=== PATIENT | male | born 1935 | race American Indian/Alaskan Native ===

== ENCOUNTER 2017-10-24 23:54 | Emergency (ER) | payer MEDICARE ==
[2017-10-25 00:29] LABS: Hematocrit 43.7 % (35.5-45.6); Hemoglobin 14.4 gm/dl (11.8-15.2); Mean Corpuscular HGB Conc 33 % (32-34); Mean Corpuscular Hemoglobin 32 pg (28-32); Mean Corpuscular Volume 98 fl (84-94); Platelet Count 147 K/mm3 (140-440); Red Blood Count 4.44 M/mm3 (3.65-5.03); Red Cell Distribution Width 12.1 % (13.2-15.2)
[2017-10-25 00:46] LABS: BUN/Creatinine Ratio 13; Blood Urea Nitrogen 12 mg/dL (9-20); Calcium 9.2 mg/dL (8.4-10.2); Hemolysis Index 8
--- NOTE | 2017-10-25 03:23 | XRay Report ---
FINAL REPORT EXAM: XR CHEST ROUTINE 2V HISTORY: SOB TECHNIQUE: PA and lateral views of the chest were submitted. There are no previous studies available for comparison. FINDINGS: Heart size and mediastinum appear normal. There are no acute infiltrates or effusions. The bones and soft tissues do not show any acute changes. IMPRESSION: No active chest disease.
[2017-10-25 05:40] LABS: Band Neutrophils # (Manual) 0.7 K/mm3; Basophils % (Manual) 0 % (0.0-1.8); Eosinophils % (Manual) 0 % (0.0-4.3); Total Cells Counted 100
[2017-10-25 05:41] LABS: RBC Morphology Normal
[2017-10-25] MEDS ORDERED: ATROVENT IH ONE (06:46)
[2017-10-25] MEDS ORDERED: DELTASONE PO ONE (06:46)
[2017-10-25] MEDS ORDERED: TESSALON PERLES PO ONE (06:46)
[2017-10-25] MEDS ORDERED: PROVENTIL IH ONE (06:46)
[2017-10-25] MEDS ORDERED: NORCO 5/325 PO ONE (06:47)
--- NOTE | 2017-10-25 07:07 | Emergency Department Report ---
- General Chief Complaint: Upper Respiratory Infection Stated Complaint: COLD SX / FEVER Time Seen by Provider: 10/25/17 06:36 Source: patient Mode of arrival: Ambulatory Limitations: No Limitations - History of Present Illness Initial Comments: 83-year-old male with a past medical history prostate cancer, prediabetes, hypertension presents to Hospital with complaints of continued cough and URI symptoms 2 weeks. Patient is cooperative young sputum he complains of moderate to severe pain across chest and posterior thorax associated with coughing. Pain worse with cough, palpation, and movement. Patient has taken 2 rounds of Z-Dio without improvement. Positive intermittent wheezing ordered but patient is not currently on any bronchodilators. He denies steroid prescriptions. No fever reported. Denies a history of COPD or asthma and denies smoking. - Related Data Previous Rx's Medication Instructions Recorded Last Taken Type ALBUTEROL Inhaler [ProAir HFA 2 puff IH QID PRN #1 inhalation 10/25/17 Unknown Rx Inhaler] Benzonatate [Tessalon Perles] 100 mg PO Q8HR #30 capsule 10/25/17 Unknown Rx HYDROcodone/APAP 5-325 [[place] 1 each PO Q6HR PRN #15 tablet 10/25/17 Unknown Rx 5/325] Ibuprofen [Motrin] 800 mg PO Q8HR PRN #30 tablet 10/25/17 Unknown Rx Inhaler, Assist Devices [Space 1 each MC PRN #1 spacer 10/25/17 Unknown Rx Chamber Plus] Levofloxacin [Levaquin] 750 mg PO QDAY #7 tablet 10/25/17 Unknown Rx Prednisone [predniSONE 10 mg 10 mg PO .TAPER #1 tab.ds.pk 10/25/17 Unknown Rx (6-Day Pack, 21 Tabs)] Allergies Allergy/AdvReac Type Severity Reaction Status Date / Time Penicillins Allergy Swelling Unverified 01/12/14 10:39 ED Review of Systems ROS: Stated complaint: COLD SX / FEVER Other details as noted in HPI Comment: All other systems reviewed and negative Other: Constitutional: No fevers chills Eyes: No eye pain visual changes ENT: No ear pain or throat pain Neck: Denies pain Respiratory: As per HPI Cardiovascular: Denies palpitations, syncope GI: Denies abdominal pain, nausea, vomiting, diarrhea : Denies dysuria Musculoskeletal: Denies back pain Skin: Denies rash, lesions, erythema Neurologic: Denies headache, numbness, weakness Psychiatric: Denies suicidal ideation, hallucinations ED Past Medical Hx - Past Medical History Previous Medical History?: Yes Hx Hypertension: Yes Hx Diabetes: Yes (prediabetic) Hx of Cancer: Yes (prostate) - Surgical History Past Surgical History?: Yes Additional Surgical History: prostate removed - Social History Smoking Status: Never Smoker - Medications Home Medications: Home Medications Medication Instructions Recorded Confirmed Last Taken Type ALBUTEROL Inhaler [ProAir HFA 2 puff IH QID PRN #1 inhalation 10/25/17 Unknown Rx Inhaler] Benzonatate [Tessalon Perles] 100 mg PO Q8HR #30 capsule 10/25/17 Unknown Rx HYDROcodone/APAP 5-325 [[place] 1 each PO Q6HR PRN #15 tablet 10/25/17 Unknown Rx 5/325] Ibuprofen [Motrin] 800 mg PO Q8HR PRN #30 tablet 10/25/17 Unknown Rx Inhaler, Assist Devices [Space 1 each MC PRN #1 spacer 10/25/17 Unknown Rx Chamber Plus] Levofloxacin [Levaquin] 750 mg PO QDAY #7 tablet 10/25/17 Unknown Rx Prednisone [predniSONE 10 mg 10 mg PO .TAPER #1 tab.ds.pk 10/25/17 Unknown Rx (6-Day Pack, 21 Tabs)] ED Physical Exam - General Limitations: No Limitations - Other Other exam information: General: No limitations, patient is alert in no acute distress Head exam: Atraumatic, normocephalic Eyes exam: Normal appearance ENT: Moist mucous membrane Neck exam: Normal inspection, full range of motion, no meningismus nontender Respiratory exam: No accessory muscle use or tachypnea. Bilateral expiratory wheezing noted. Reproducible chest wall tenderness Cardiovascular: Normal rate and rhythm Abdomen: Soft, nondistended, and nontender, with normal bowel sounds, no rebound, or guarding Extremity: Full range of motion normal inspection no deformity, no calf tenderness or edema Back: Normal Inspection, full range of motion, no tenderness Neurologic: Alert, oriented x3, cranial nerves intact, no motor or sensory deficit Psychiatric: normal affect, normal mood Skin: Warm, dry, intact ED Course Vital Signs 10/25/17 10/25/17 10/25/17 00:03 00:07 01:30 Temperature 99 F 99.0 F Pulse Rate 79 79 Pulse Rate [ Bilateral] Respiratory 16 18 Rate Respiratory Rate [Bilateral ] Blood Pressure 147/66 Blood Pressure 147/66 [Right] O2 Sat by Pulse 95 95 96 Oximetry 10/25/17 10/25/17 10/25/17 01:39 01:45 02:00 Temperature Pulse Rate 66 68 Pulse Rate [ Bilateral] Respiratory 18 22 22 Rate Respiratory Rate [Bilateral ] Blood Pressure 154/76 154/72 Blood Pressure [Right] O2 Sat by Pulse 96 95 96 Oximetry 10/25/17 10/25/17 10/25/17 02:15 03:37 03:45 Temperature Pulse Rate 67 70 Pulse Rate [ Bilateral] Respiratory 20 22 Rate Respiratory Rate [Bilateral ] Blood Pressure 154/72 154/72 154/72 Blood Pressure [Right] O2 Sat by Pulse 96 94 94 Oximetry 10/25/17 10/25/17 10/25/17 04:00 04:15 04:30 Temperature Pulse Rate 69 69 69 Pulse Rate [ Bilateral] Respiratory 22 16 20 Rate Respiratory Rate [Bilateral ] Blood Pressure 152/70 152/70 159/73 Blood Pressure [Right] O2 Sat by Pulse 94 95 96 Oximetry 10/25/17 10/25/17 10/25/17 04:45 05:00 05:15 Temperature Pulse Rate 70 70 71 Pulse Rate [ Bilateral] Respiratory 25 H 23 23 Rate Respiratory Rate [Bilateral ] Blood Pressure 159/73 164/74 164/74 Blood Pressure [Right] O2 Sat by Pulse 95 95 95 Oximetry 10/25/17 10/25/17 10/25/17 05:30 05:45 06:00 Temperature Pulse Rate 71 71 Pulse Rate [ Bilateral] Respiratory 20 20 24 Rate Respiratory Rate [Bilateral ] Blood Pressure 155/74 155/74 152/80 Blood Pressure [Right] O2 Sat by Pulse 95 95 96 Oximetry 10/25/17 10/25/17 10/25/17 06:15 06:30 06:45 Temperature Pulse Rate 152 H 71 70 Pulse Rate [ Bilateral] Respiratory 17 17 18 Rate Respiratory Rate [Bilateral ] Blood Pressure 152/80 143/83 143/83 Blood Pressure [Right] O2 Sat by Pulse 95 94 97 Oximetry 10/25/17 10/25/17 10/25/17 07:00 07:53 07:54 Temperature Pulse Rate Pulse Rate [ 79 74 Bilateral] Respiratory 19 Rate Respiratory 20 18 Rate [Bilateral ] Blood Pressure 170/77 Blood Pressure [Right] O2 Sat by Pulse 96 Oximetry - Reevaluation(s) Reevaluation #1: 10/25/17 09:10 Patient feeling better with ED treatment and breath sounds clear - Consultations Consultation #1: 10/25/17 07:25 Case discussed with the awning finisher on-call Dr Brown. Suggest prednisone and to try Levaquin in outpatient follow ED Medical Decision Making - Lab Data Result diagrams: 10/25/17 00:17 10/25/17 00:17 Lab Results 10/25/17 10/25/17 Range/Units 00:17 00:17 WBC 6.7 (4.5-11.0) K/mm3 RBC 4.44 (3.65-5.03) M/mm3 Hgb 14.4 (11.8-15.2) gm/dl Hct 43.7 (35.5-45.6) % MCV 98 H (84-94) fl MCH 32 (28-32) pg MCHC 33 (32-34) % RDW 12.1 L (13.2-15.2) % Plt Count 147 (140-440) K/mm3 Hawkins % (Auto) Director Export Add Manual Diff Complete Total Counted 100 Seg Neuts % (Manual) 62.0 (40.0-70.0) % Band Neutrophils % 10.0 % Lymphocytes % (Manual) 10.0 L (13.4-35.0) % Reactive Lymphs % (Man) 0 % Monocytes % (Manual) 18.0 H (0.0-7.3) % Eosinophils % (Manual) 0 (0.0-4.3) % Basophils % (Manual) 0 (0.0-1.8) % Metamyelocytes % 0 % Myelocytes % 0 % Promyelocytes % 0 % Blast Cells % 0 % Nucleated RBC % Not Reportable Seg Neutrophils # Man 4.2 (1.8-7.7) K/mm3 Band Neutrophils # 0.7 K/mm3 Lymphocytes # (Manual) 0.7 L (1.2-5.4) K/mm3 Abs React Lymphs (Man) 0.0 K/mm3 Monocytes # (Manual) 1.2 H (0.0-0.8) K/mm3 Eosinophils # (Manual) 0.0 (0.0-0.4) K/mm3 Basophils # (Manual) 0.0 (0.0-0.1) K/mm3 Metamyelocytes # 0.0 K/mm3 Myelocytes # 0.0 K/mm3 Promyelocytes # 0.0 K/mm3 Blast Cells # 0.0 K/mm3 WBC Morphology Not Reportable Hypersegmented Neuts Not Reportable Hyposegmented Neuts Not Reportable Hypogranular Neuts Not Reportable Smudge Cells Not Reportable Toxic Granulation Not Reportable Toxic Vacuolation Not Reportable Dohle Bodies Not Reportable Pelger-Huet Anomaly Not Reportable Gricelda Rods Not Reportable Platelet Estimate Appears normal Clumped Platelets Not Reportable Plt Clumps, EDTA Not Reportable Large Platelets Not Reportable Giant Platelets Not Reportable Platelet Satelliting Not Reportable Plt Morphology Comment Not Reportable RBC Morphology Normal Dimorphic RBCs Not Reportable Polychromasia Not Reportable Hypochromasia Not Reportable Poikilocytosis Not Reportable Anisocytosis Not Reportable Microcytosis Not Reportable Macrocytosis Not Reportable Spherocytes Not Reportable Pappenheimer Bodies Not Reportable Sickle Cells Not Reportable Target Cells Not Reportable Tear Drop Cells Not Reportable Ovalocytes Not Reportable Helmet Cells Not Reportable Malone-Johnson Bodies Not Reportable Moody Rings Not Reportable [place] Cells Not Reportable Bite Cells Not Reportable Crenated Cell Not Reportable Elliptocytes Not Reportable Acanthocytes (Spur) Not Reportable Rouleaux Not Reportable Hemoglobin C Crystals Not Reportable Schistocytes Not Reportable Malaria parasites Not Reportable Cuong Bodies Not Reportable Hem Pathologist Commnt No Sodium 141 (137-145) mmol/L Potassium 4.8 (3.6-5.0) mmol/L Chloride 101.1 (98-107) mmol/L Carbon Dioxide 28 (22-30) mmol/L Anion Gap 17 mmol/L BUN 12 (9-20) mg/dL Creatinine 0.9 (0.8-1.5) mg/dL Estimated GFR > 60 ml/min BUN/Creatinine Ratio 13 % Glucose 166 H (75-100) mg/dL Calcium 9.2 (8.4-10.2) mg/dL - EKG Data -: EKG Interpreted by [facility] EKG shows normal: sinus rhythm, ST-T waves (lvh, stemi) Rate: normal (72) - Radiology Data Radiology results: report reviewed (chest x-ray: No acute findings. read By radiologist) - Medical Decision Making Patient being treated for bronchitis. He will be prescribed Levaquin since symptoms continue. Patient encouraged to take steroids although he states he will likely take him because of fear of making his glucose higher. Director Immunology follow-up will be encouraged - Differential Diagnosis bronchitis, pneumonia, viral syndrome, COPD Critical Care Time: No Critical care attestation.: If time is entered above; I have spent that time in minutes in the direct care of this critically ill patient, excluding procedure time. ED Disposition Clinical Impression: Acute bronchitis, Wheezing Disposition: [id number] TO HOME OR SELFCARE Is pt being admited?: No Does the pt Need Aspirin: No Condition: Stable Instructions: Acute Bronchitis (ED) Additional Instructions: Take the medication as prescribed. Follow-up with the awning finisher provided. Return is symptoms worsen. You may monitori your sugars at home while taking the prednisone. It is concerning if sugars remain over 300s. When you completes the prednisone sugar should return to normal. Follow-up with your primary care doctor in the meantime for further management Prescriptions: ALBUTEROL Inhaler [ProAir HFA Inhaler] 2 puff IH QID PRN #1 inhalation PRN Reason: Shortness Of Breath Benzonatate [Tessalon Perles] 100 mg PO Q8HR #30 capsule HYDROcodone/APAP 5-325 [[place] 5/325] 1 each PO Q6HR PRN #15 tablet PRN Reason: Pain Ibuprofen [Motrin] 800 mg PO Q8HR PRN #30 tablet PRN Reason: Pain Inhaler, Assist Devices [Space Chamber Plus] 1 each MC PRN #1 spacer Levofloxacin [Levaquin] 750 mg PO QDAY #7 tablet Prednisone [predniSONE 10 mg (6-Day Pack, 21 Tabs)] 10 mg PO .TAPER #1 tab.ds.pk Referrals: MELISA RUELAS MD [Primary Care Provider] - 2-3 Days Time of Disposition: 09:24
[2017-10-25] MEDS ORDERED: LEVAQUIN PO ONE (07:24)
[2017-10-25 16:40] VITALS: BP 172/67
== END 2017-10-25 10:00 | disposition home or self-care (01) ==
LOC: ED 23:54 → EEVIPCON 23:54 → ED 10-25 10:00
DX: J20.9 Acute bronchitis, unspecified (principal); R06.2 Wheezing; I10 Essential (primary) hypertension; E11.9 Type 2 diabetes mellitus without complications; Z85.46 Personal history of malignant neoplasm of prostate; Z98.890 Other specified postprocedural states; Z88.0 Allergy status to penicillin
CPT/HCPCS: 36415; 71046; 80048; 85007; 85025; 93005; 93010; 94640; 99284; J7512